=== PATIENT | female | born 1995 | race Caucasian/White ===

== ENCOUNTER 2019-11-15 10:36 | Emergency (ER) | payer OTHER ==
[~2019-11-15] VITALS: Ht 165.1 cm; Wt 79.4 kg
[2019-11-15] MEDS ORDERED: ONDANSETRON HCL INJ 2MG/ML 2ML 2 MG/ML VIAL IV STA (10:48)
[2019-11-15] MEDS ORDERED: PANTOPRAZOLE 40 MG 10ML VIAL IV STA (10:48)
[2019-11-15] MEDS ORDERED: SODIUM CHLORIDE 0.9% 1000ML 1,000 ML IV STA ×2 (10:48→12:51)
--- NOTE | 2019-11-15 10:56 | NUR ---
MD JACOME DONE, PT REFUSED TO ALLOW MD TO CONTINUE WITH EVAL. PT KEPT GRABBING MD ARM NUMEROUS TIMES. PT KEEPS PULLING OFF MASK. PT CONTINUES TO THRASH ABOUT SCREAMING AND YELLING UNCONTROLLABLY. PT GROWLS AND CONTINUES MAKING NOISES WHILE THRASHING. PT DID HOWEVER, STOP DURING TALKING ON HER CELL PHONE AND REMAINED CALM UNTIL STAFF BACK IN ROOM. PT ABLE TO SIT UP DISPLAYING NORMAL BEHAVIOR WHILE ON CELL PHONE CALL.
[2019-11-15 10:59] LABS: BASOPHILS # (AUTO) 0.1 (0.0-0.1); BASOPHILS % 0.5 % (0.0-1.0); EOSINOPHILS # (AUTO) 0.1 (0.0-0.4); EOSINOPHILS % 0.6 % (0.0-6.0); HEMATOCRIT 43.3 % (34.2-44.1); HEMOGLOBIN 14.1 g/dL (12.0-16.0); LYMPHOCYTES % 13.9 % (18.0-39.1); MEAN CORPUSCULAR HEMOGLOBIN 26.6 pg (28-32); MEAN CORPUSCULAR HGB CONC 32.6 g/dL (31-35); MEAN CORPUSCULAR VOLUME 81.5 fL (81-99); MONOCYTES # (AUTO) 0.8 (0.2-0.8); MONOCYTES % 5.5 % (4.4-11.3); NEUTROPHILS # (AUTO) 11.1 (2.1-6.9); NEUTROPHILS % 78.4 % (38.7-80.0); PLATELET COUNT 284 x10e3/uL (140-360); RED BLOOD COUNT 5.31 x10e6/uL (3.6-5.1); RED CELL DISTRIBUTION WIDTH 12.7 % (11.7-14.4)
[2019-11-15] MEDS ORDERED: PROMETHAZINE HCL (IM) 25 MG/ML VIAL IM ONE (11:00)
[2019-11-15] MEDS ORDERED: DICYCLOMINE HCL 20 MG/2 ML VIAL IM ONE (11:00)
--- OUTSIDE RECORDS SUMMARY | 2019-11-15 11:00 | XMS REPORT | Summary of Care ---
Author Author [facility] Address Unknown Phone Unavailable Encounter HQ Negritontr_alikarla(FIN) [id number] Date(s): 01/13/19 - 01/13/19 [facility] [id number] [facility] [address] [place] [address]- [phone] Attending Physician: Ceci Prieto MD Vital Signs No data available for this section Problem List Condition Effective Dates Status Health Status Informan t Anxiety and Active depression(Confirmed ) Anxiety and Resolved depression(Confirmed ) Family history of Active thyroid disease(Confirmed) Allergies, Adverse Reactions, Alerts Substance Reaction Severity Status penicillin Active Medications No data available for this section Results No data available for this section Immunizations Given and Recorded Vaccine Date Status Refusal Reason measles/mumps/rubella virus vaccine 01/14/19 Gi camryn measles/mumps/rubella virus vaccine 11/19/18 Gi camryn hepatitis B adult vaccine 12/24/18 Given hepatitis B adult vaccine 11/19/18 Given influenza virus vaccine, inactivated 11/17/18 R ecorded diphtheria/pertussis, acel/tetanus adult 11/01/18 Given Procedures Procedure Date Related Diagnosis Body Site Status Tonsillectomy and adenoidectomy Completed Social History Social History Type Response Smoking Status Current every day smoker; T ype: Cigarettes; Exposure to Tobacco Smoke None; Cigarette Smoking Last 365 Days Yes; Re g Smoking Cessation Counseling No entered on: 01/08/19 Assessment and Plan No data available for this section
--- OUTSIDE RECORDS SUMMARY | 2019-11-15 11:00 | XMS REPORT | Summary of Care ---
Author Author [facility] Address Unknown Phone Unavailable Encounter HQ Davir_lulu(FIN) [id number] Date(s): 11/04/18 - 11/05/18 [facility] [address] [place] [address]- [phone] Vital Signs No data available for this section Problem List Condition Effective Dates Status Health Status Informan t Anxiety and Resolved depression(Confirmed ) Anxiety and Active depression(Confirmed ) Family history of Active thyroid disease(Confirmed) Allergies, Adverse Reactions, Alerts Substance Reaction Severity Status penicillin Active Medications No data available for this section Results No data available for this section Immunizations Given and Recorded Vaccine Date Status Refusal Reason diphtheria/pertussis, acel/tetanus adult 11/01/18 Given Procedures Procedure Date Related Diagnosis Body Site Status Tonsillectomy and adenoidectomy Completed Social History Social History Type Response Smoking Status Current every day smoker; T ype: Cigarettes; Exposure to Tobacco Smoke None; Cigarette Smoking Last 365 Days Yes; Re g Smoking Cessation Counseling No entered on: 11/01/18 Assessment and Plan No data available for this section
--- OUTSIDE RECORDS SUMMARY | 2019-11-15 11:00 | XMS REPORT | Summary of Care ---
Author Author [facility] Address Unknown Phone Unavailable Encounter HQ Davir_lulu(FIN) [id number] Date(s): 12/24/18 - 12/24/18 [facility] [id number] [facility] [address] [place] [address]- [phone] Discharge Disposition: Home or Self Care Attending Physician: VISIT, NURSE CLP Vital Signs No data available for this [...] and Recorded Vaccine Date Status Refusal Reason hepatitis B adult vaccine 12/24/18 Given hepatitis B adult vaccine 11/19/18 Given measles/mumps/rubella virus vaccine 11/19/18 Gi camryn influenza virus vaccine, inactivated 11/17/18 R ecorded [...]
--- OUTSIDE RECORDS SUMMARY | 2019-11-15 11:00 | XMS REPORT | Continuity of Care Document ---
Author Author [facility] t Organization [facility] Address [facility] [place] [address] Phone Unavailable Care Team Providers Care Emergency Crew Supervisor Name Role Phone Jessica Mcknight Attphys Karlos Prieto Attphys VISIT, CLP NURSE Attphys Unavailable Payers Payer Name Policy Type Policy Number Effective Date Expiration Date S ource Problems Condition Name Condition Details Condition Category Status Onset Date Resolution Date Last Treatment Date Treating Clinician Comments Source Anxiety (finding) Anxi ety (finding) Active Problem 01/17/2019 [facility] Problem Active 2019-01-17 00:26:53 Kelly Sarmiento Family history: Thyroid disorder (context-dependent ca tegory) Family history: Thyroid disorder (context-dependent category) Active Problem 01/17/2019 Medical Group Problem Active 2019-01-17 00: 26:53 Kelly Sarmiento Allergies, Adverse Reactions, Alerts Allergy Name Allergy Type Status Severity Reaction(s) Onset Date Inacti ve Date Treating Clinician Comments Source Penicillins DA Active [place] 2017-02-28 00:00:00 [facility] penicillin penicillin Active Oh ifeanyi Sarmiento Social History Smoking Status Start Date Stop Date Source Social History 2019-01-08 18:47:53 Kelly novoa Medications Ordered Medication Name Filled Medication Name Start Date Stop Da te Current Medication? Ordering Clinician Indication Dosage Frequency Signature (SIG) Comments Components Source Ciprofloxacin 3 MG/ML / Dexamethasone 1 MG/ML Otic Suspensio n [Ciprodex] 2019-01-08 19:27:00 Yes 4 drp, RIGHT EAR, BID, X 7 day, # 1 btl, 0 Refill(s), Pharmacy: [email or web address][id number] [facility] Azithromycin 5 Day Dose Pack 250 mg oral tablet 2019-01-08 19:27 :00 Yes See Instructions, Take 2 tab lets by mouth the first day then 1 tablet by mouth days 2-5., X 5 day, # 6 tab, 0 Refill(s), Pharmacy: [email or web address] #[id number] [facility] Vital Signs Vital Name Observation Time Observation Value Comments Source Systolic (mm Hg) 2019-01-08 18:46:00 [facility] [place] Diastolic (mm Hg) 2019-01-08 18:46:00 Mem [facility]rial [place] Heart Rate 2019-01-08 18:46:00 [facility] Temperature Oral (F) 2019-01-08 18:46:00 99.0 F [facility] Height 2019-01-08 18:46:00 162.56 cm [facility] Weight 2019-01-08 18:46:00 [facility] BMI Calculated 2019-01-08 18:46:00 [facility] [place] BMI Calculated 2018-11-01 18:49:00 [facility] [place] Weight 2018-11-01 18:49:00 [facility] Height 2018-11-01 18:49:00 160.02 cm [facility] Heart Rate 2018-11-01 18:49:00 [facility] Systolic (mm Hg) 2018-11-01 18:49:00 [facility] [place] Diastolic (mm Hg) 2018-11-01 18:49:00 [facility] orial [place] Procedures Procedure Date / Time Performed Performing Clinician [facility] e Tonsillectomy and adenoidectomy [facility] Encounters Start Date/Time End Date/Time [facility] ID Source 2019-11-01 13:59:00 2019-11-01 13:59:00 Emergency E [facility] [id number] [facility] 2019-01-14 11:00:00 2019-01-14 23:59:59 Outpatient Monika Mcknight [facility] [id number] 2019-01-13 13:00:00 2019-01-13 13:00:00 Outpatient Ceci Fernández [facility] [id number] 2019-01-08 14:00:00 2019-01-08 23:59:59 Outpatient Kylah Ceci hudson [facility] [id number] 2018-12-26 15:30:00 2018-12-26 23:59:59 Outpatient VISIT, NURSE RICKY [facility] [id number] 2018-12-24 14:15:00 2018-12-24 23:59:59 Outpatient VISIT, NURSE RICKY [facility] [id number] 2018-11-19 09:45:00 2018-11-19 23:59:59 Outpatient Monika Mcknight [facility] [id number] 2018-11-12 16:08:26 2018-11-13 16:08:26 Outpatient [facility] [id number] 2018-11-08 08:31:06 2018-11-09 08:31:06 Outpatient [facility] [id number] 2018-11-04 20:14:36 2018-11-05 20:14:36 Outpatient [facility] [id number] 2018-11-01 13:30:00 2018-11-01 23:59:59 Outpatient Monika Mcknight [facility] [id number] Results Test Description Test Time Test Comments Results Result Comments Source URINALYSIS COMPLETE 2019-08-27 04:28:00 Test Item UA COLOR (test code = COLU) Light-Yellow YELLOW UA APPEARANCE (test code = APPU) CLEAR CLEAR UA GLUCOSE DIPSTICK (test code = DGLUU) NEGATIVE mg/dL NEGATIVE UA BILIRUBIN DIPSTICK (test code = BILU) NEGATIVE mg/dL NEGATIVE UA KETONE DIPSTICK (test code = KETU) NEGATIVE mg/dL NEGATIVE UA SPECIFIC GRAVITY (test code = SGU) 1.012 1.001-1.035 UA BLOOD DIPSTICK (test code = TERESO) Negative mg/dL NEGATIVE UA PH DIPSTICK (test code = FRANCHESKA) 6.0 5.0-8.0 UA PROTEIN DIPSTICK (test code = PROU) NEGATIVE mg/dL NEGATIVE UA UROBILINIOGEN DIPSTICK (test code = URO) Normal mg/dL NEGATIVE UA NITRITE DIPSTICK (test code = ELIANE) NEGATIVE NEGATIVE UA LEUKOCYTE ESTERASE W REFLEX (test code = LEUUR) NEGATIVE Marilin/uL NEGATIVE UA WBC (test code = WBCU) 0-5 per HPF 0-5 UA RBC (test code = RBCU) 0-2 #/HPF 0-5 UA EPITHELIAL CELLS (test code = EPIU) FEW per HPF FEW UA BACTERIA (test code = BACU) FEW #/HPF NONE A UA MUCUS (test code = MUCU) FEW #/LPF FEW Urine Source? Clean CatchDRUGS OF ABUSE SCREEN [id number] 04:28:00* Test Item Value Reference Range Interpretation Comments URN COCAINE (test code = COCAURN) NEGATIVE <300 ng/mL URN CANNABINOIDS (test code = CANNABURN) POSITIVE <50 ng/mL A This test provides only a preliminary test result. A morespecific alternate chemical method must be used in order toobtain a confirmed analytical result. Gas chromatography/mass spectrometry (GC/MS) is thepreferred confirmatory method. Other chemical confirmationmethods are available. Clinical consideration and professional judgment should be applied to any drug of abusetest result, particularly when preliminary positive resultsare used.Unconfirmed screening results must not be used fornon-medical purposes (e.g., employment testing, legaltesting). URN AMPHETAMINE (test code = AMPHETURN) NEGATIVE <1000 ng/mL URN BARBITURATE (test code = BARBITURN) NEGATIVE <200 ng/mL URN BENZODIAZEPINE (test code = BENZOURN) NEGATIVE <200 ng/mL URN OPIATES (test code = OPIATURN) NEGATIVE <300 ng/mL URN PHENCYCLIDINE (PCP) (test code = PHENCURN) NEGATIVE <25 ng/ mL URN METHADONE (test code = METHAURN) NEGATIVE <300 ng/mL Urine Source? Clean CatchBASIC METABOLIC [id number] 04:26:00* Test Item Value Reference Range Interpretation Comments SODIUM (test code = NA) 143 mmol/L 136-145 N POTASSIUM (test code = K) 4.0 mmol/L 3.5-5.1 N CHLORIDE (test code = CL) 112.0 mmol/L 98-107 H CARBON DIOXIDE (test code = CO2) 24.0 mmol/L 21-32 N ANION GAP (test code = GAP) 11.0 10-20 N GLUCOSE (test code = GLU) 103 mg/dL 74-106 N BLOOD UREA NITROGEN (test code = BUN) 13 mg/dL 7-18 N GLOMERULAR FILTRATION RATE (test code = GFR) > 60 mL/min >=60 Estimated GFR by using Modified MDRD formula.Chronic kidney disease is defined as either kidney damageor GFR <60 mL/min/1.73 m2 for >3 months. CREATININE (test code = CREAT) 0.80 mg/dL 0.55-1.02 N Note change in reference range due to change in reagent. BUN/CREATININE RATIO (test code = BUN/CREA) 16.3 10-20 N CALCIUM (test code = CA) 8.6 mg/dL 8.5-10.1 N HEPATIC FUNCTION [id number] 04:26:00* Test Item Value Reference Range Interpretation Comments TOTAL PROTEIN (test code = PROT) 7.9 gram/dL 6.4-8.2 N ALBUMIN (test code = ALB) 4.4 g/dL 3.4-5.0 N GLOBULIN (test code = GLOB) 3.5 gram/dL 2.7-4.2 N ALBUMIN/GLOBULIN RATIO (test code = A/G) 1.3 0.75-1.50 N BILIRUBIN TOTAL (test code = BILT) 0.20 mg/dL 0.0-1.0 N BILIRUBIN DIRECT (test code = BILD) 0.10 mg/dL 0.0-0.20 N SGOT/AST (test code = AST) 18 IUnit/L 15-37 N SGPT/ALT (test code = ALT) 23 IUnit/L 12-78 N ALKALINE PHOSPHATASE TOTAL (test code = ALKP) 80 IUnit/L 45-117 N Note change in reference range due to change in reagent. HCG SERUM [id number] 04:26:00* Test Item Value Reference Range Interpretation Comments HCG SERUM QUAL (test code = HCGQL) NEGATIVE NEGATIVE This HCGQL test is NOT applicable for MALE patients.Check with nurse about probable order error.If Tumor Marker Test needed, nurse should order test "HCGTU"(Test #550.72307) [id number] 04:26:00* Test Item Value Reference Range Interpretation Comments ACETAMINOPHEN (test code = ACET) < 10 mcg/mL 10-30 L A RANGE OF 10-30 mcg/mL IS A THERAPEUTIC RANGE. TOXIC CONCENTRATIONS: >150 mcg/mL AT 4 HOURS AFTER INGESTION >= 50 mcg/mL AT 12 HOURS AFTER INGESTION [id number] 04:26:00* Test Item Value Reference Range Interpretation Comments SALICYLATE (test code = CARLOS) 2.2 mg/dL 2.8-20.0 L [id number] 04:26:00* Test Item Value Reference Range Interpretation Comments ALCOHOL (test code = ALC) 203 mg/dL 0.0-3.0 H -- INTERPRETIVE DATA NOTE: POSITIVE SCREENING RESULTS SHOULD BE CONSIDERED PRESUMPTIVE.WHEN COLLECTED FOR MEDICAL PURPOSES ONLY. SPECIMEN WILL NOTBE COLLECTED BY CHAIN OF CUSTODY.IF A CONFIRMATION OF POSITIVE RESULTS IS DESIRED, ACONFIRMATION TEST MUST BE REQUESTED BY THE PHYSICIAN AT ANADDITIONAL CHARGE TO THE PATIENT. BASIC METABOLIC [id number] 04:20:00* Test Item Value Reference Range Interpretation Comments SODIUM (test code = NA) 143 mmol/L 136-145 N POTASSIUM (test code = K) 4.0 mmol/L 3.5-5.1 N CHLORIDE (test code = CL) 112.0 mmol/L 98-107 H CARBON DIOXIDE (test code = CO2) mmol/L 21-32 ANION GAP (test code = GAP) 10-20 GLUCOSE (test code = GLU) mg/dL 74-106 BLOOD UREA NITROGEN (test code = BUN) mg/dL 7-18 GLOMERULAR FILTRATION RATE (test code = GFR) mL/min >=60 CREATININE (test code = CREAT) mg/dL 0.55-1.02 BUN/CREATININE RATIO (test code = BUN/CREA) 10-20 CALCIUM (test code = CA) mg/dL 8.5-10.1 HEPATIC FUNCTION [id number] 04:20:00* Test Item Value Reference Range Interpretation Comments TOTAL PROTEIN (test code = PROT) gram/dL 6.4-8.2 ALBUMIN (test code = ALB) g/dL 3.4-5.0 GLOBULIN (test code = GLOB) gram/dL 2.7-4.2 ALBUMIN/GLOBULIN RATIO (test code = A/G) 0.75-1.50 BILIRUBIN TOTAL (test code = BILT) mg/dL 0.0-1.0 BILIRUBIN DIRECT (test code = BILD) mg/dL 0.0-0.20 SGOT/AST (test code = AST) IUnit/L 15-37 SGPT/ALT (test code = ALT) IUnit/L 12-78 ALKALINE PHOSPHATASE TOTAL (test code = ALKP) IUnit/L 45-117 HCG SERUM [id number] 04:20:00* Test Item Value Reference Range Interpretation Comments HCG SERUM QUAL (test code = HCGQL) NEGATIVE NEGATIVE This HCGQL test is NOT applicable for MALE patients.Check with nurse about probable order error.If Tumor Marker Test needed, nurse should order test "HCGTU"(Test #550.17820) [id number] 04:20:00* Test Item Value Reference Range Interpretation Comments ACETAMINOPHEN (test code = ACET) mcg/mL 10-30 [id number] 04:20:00* Test Item Value Reference Range Interpretation Comments SALICYLATE (test code = CARLOS) mg/dL 2.8-20.0 [id number] 04:20:00* Test Item Value Reference Range Interpretation Comments ALCOHOL (test code = ALC) mg/dL 0-3 BASIC METABOLIC [id number] 04:17:00* Test Item Value Reference Range Interpretation Comments SODIUM (test code = NA) mmol/L 136-145 POTASSIUM (test code = K) mmol/L 3.5-5.1 CHLORIDE (test code = CL) mmol/L 98-107 CARBON DIOXIDE (test code = CO2) mmol/L 21-32 ANION GAP (test code = GAP) 10-20 GLUCOSE (test code = GLU) mg/dL 74-106 BLOOD UREA NITROGEN (test code = BUN) mg/dL 7-18 GLOMERULAR FILTRATION RATE (test code = GFR) mL/min >=60 CREATININE (test code = CREAT) mg/dL 0.55-1.02 BUN/CREATININE RATIO (test code = BUN/CREA) 10-20 CALCIUM (test code = CA) mg/dL 8.5-10.1 HEPATIC FUNCTION [id number] 04:17:00* Test Item Value Reference Range Interpretation Comments TOTAL PROTEIN (test code = PROT) gram/dL 6.4-8.2 ALBUMIN (test code = ALB) g/dL 3.4-5.0 GLOBULIN (test code = GLOB) gram/dL 2.7-4.2 ALBUMIN/GLOBULIN RATIO (test code = A/G) 0.75-1.50 BILIRUBIN TOTAL (test code = BILT) mg/dL 0.0-1.0 BILIRUBIN DIRECT (test code = BILD) mg/dL 0.0-0.20 SGOT/AST (test code = AST) IUnit/L 15-37 SGPT/ALT (test code = ALT) IUnit/L 12-78 ALKALINE PHOSPHATASE TOTAL (test code = ALKP) IUnit/L 45-117 HCG SERUM [id number] 04:17:00* Test Item Value Reference Range Interpretation Comments HCG SERUM QUAL (test code = HCGQL) NEGATIVE NEGATIVE This HCGQL test is NOT applicable for MALE patients.Check with nurse about probable order error.If Tumor Marker Test needed, nurse should order test "HCGTU"(Test #550.64709) [id number] 04:17:00* Test Item Value Reference Range Interpretation Comments ACETAMINOPHEN (test code = ACET) mcg/mL 10-30 [id number] 04:17:00* Test Item Value Reference Range Interpretation Comments SALICYLATE (test code = CARLOS) mg/dL 2.8-20.0 [id number] 04:17:00* Test Item Value Reference Range Interpretation Comments ALCOHOL (test code = ALC) mg/dL 0-3 CBC W/O [id number] 03:59:00* Test Item Value Reference Range Interpretation Comments WHITE BLOOD CELL (test code = WBC) 11.7 K/mm3 4.5-12.5 N RED BLOOD CELL (test code = RBC) 5.17 mill/mm3 3.7-5.2 N HEMOGLOBIN (test code = HGB) 14.2 gram/dL 11.5-15.5 N HEMATOCRIT (test code = HCT) 43.7 % 36.0-46.0 N MEAN CELL VOLUME (test code = MCV) 84.5 fL 80-98 N MEAN CELL HGB (test code = MCH) 27.5 picogram 27.0-33.0 N MEAN CELL HGB CONCETRATION (test code = MCHC) 32.5 gram/dL 33.0-36. 0 L RED CELL DISTRIBUTION WIDTH (test code = RDW) 13.0 % 11.6-16. 2 N PLATELET COUNT (test code = PLT) 258 K/mm3 150-450 N MEAN PLATELET VOLUME (test code = MPV) 8.7 fL 6.7-11.0 N URINALYSIS [id number] 03:58:00* Test Item Value Reference Range Interpretation Comments UA COLOR (test code = COLU) Light-Yellow YELLOW UA APPEARANCE (test code = APPU) CLEAR CLEAR UA GLUCOSE DIPSTICK (test code = DGLUU) NEGATIVE mg/dL NEGATIVE UA BILIRUBIN DIPSTICK (test code = BILU) NEGATIVE mg/dL NEGATIVE UA KETONE DIPSTICK (test code = KETU) NEGATIVE mg/dL NEGATIVE UA SPECIFIC GRAVITY (test code = SGU) 1.012 1.001-1.035 UA BLOOD DIPSTICK (test code = TERESO) Negative mg/dL NEGATIVE UA PH DIPSTICK (test code = FRANCHESKA) 6.0 5.0-8.0 UA PROTEIN DIPSTICK (test code = PROU) NEGATIVE mg/dL NEGATIVE UA UROBILINIOGEN DIPSTICK (test code = URO) Normal mg/dL NEGATIVE UA NITRITE DIPSTICK (test code = ELIANE) NEGATIVE NEGATIVE UA LEUKOCYTE ESTERASE W REFLEX (test code = LEUUR) NEGATIVE Marilin/uL NEGATIVE UA WBC (test code = WBCU) 0-5 per HPF 0-5 UA RBC (test code = RBCU) 0-2 #/HPF 0-5 UA EPITHELIAL CELLS (test code = EPIU) FEW per HPF FEW UA BACTERIA (test code = BACU) FEW #/HPF NONE A UA MUCUS (test code = MUCU) FEW #/LPF FEW Urine Source? Clean CatchDRUGS OF ABUSE SCREEN [id number] 03:58:00* Test Item Value Reference Range Interpretation Comments URN COCAINE (test code = COCAURN) <300 ng/mL URN CANNABINOIDS (test code = CANNABURN) <50 ng/mL URN AMPHETAMINE (test code = AMPHETURN) <1000 ng/mL URN BARBITURATE (test code = BARBITURN) <200 ng/mL URN BENZODIAZEPINE (test code = BENZOURN) <200 ng/mL URN OPIATES (test code = OPIATURN) <300 ng/mL URN PHENCYCLIDINE (PCP) (test code = PHENCURN) <25 ng/ mL URN METHADONE (test code = METHAURN) <300 ng/mL Urine Source? Clean CatchCBC W/O [id number] 03:58:00* Test Item Value Reference Range Interpretation Comments WHITE BLOOD CELL (test code = WBC) K/mm3 4.5-12.5 RED BLOOD CELL (test code = RBC) mill/mm3 3.7-5.2 HEMOGLOBIN (test code = HGB) 14.2 gram/dL 11.5-15.5 N HEMATOCRIT (test code = HCT) 43.7 % 36.0-46.0 N MEAN CELL VOLUME (test code = MCV) fL 80-98 MEAN CELL HGB (test code = MCH) picogram 27.0-33.0 MEAN CELL HGB CONCETRATION (test code = MCHC) gram/dL 33.0-36. 0 RED CELL DISTRIBUTION WIDTH (test code = RDW) % 11.6-16. 2 PLATELET COUNT (test code = PLT) K/mm3 150-450 MEAN PLATELET VOLUME (test code = MPV) fL 6.7-11.0 URINALYSIS [id number] 03:57:00* Test Item Value Reference Range Interpretation Comments UA COLOR (test code = COLU) Light-Yellow YELLOW UA APPEARANCE (test code = APPU) CLEAR CLEAR UA GLUCOSE DIPSTICK (test code = DGLUU) NEGATIVE mg/dL NEGATIVE UA BILIRUBIN DIPSTICK (test code = BILU) NEGATIVE mg/dL NEGATIVE UA KETONE DIPSTICK (test code = KETU) NEGATIVE mg/dL NEGATIVE UA SPECIFIC GRAVITY (test code = SGU) 1.012 1.001-1.035 UA BLOOD DIPSTICK (test code = TERESO) Negative mg/dL NEGATIVE UA PH DIPSTICK (test code = FRANCHESKA) 6.0 5.0-8.0 UA PROTEIN DIPSTICK (test code = PROU) NEGATIVE mg/dL NEGATIVE UA UROBILINIOGEN DIPSTICK (test code = URO) Normal mg/dL NEGATIVE UA NITRITE DIPSTICK (test code = ELIANE) NEGATIVE NEGATIVE UA LEUKOCYTE ESTERASE W REFLEX (test code = LEUUR) NEGATIVE Marilin/uL NEGATIVE UA WBC (test code = WBCU) per HPF 0-5 UA RBC (test code = RBCU) per HPF 0-5 UA EPITHELIAL CELLS (test code = EPIU) per HPF Few UA BACTERIA (test code = BACU) per HPF NONE Urine Source? Clean CatchDRUGS OF ABUSE SCREEN [id number] 03:57:00* Test Item Value Reference Range Interpretation Comments URN COCAINE (test code = COCAURN) <300 ng/mL URN CANNABINOIDS (test code = CANNABURN) <50 ng/mL URN AMPHETAMINE (test code = AMPHETURN) <1000 ng/mL URN BARBITURATE (test code = BARBITURN) <200 ng/mL URN BENZODIAZEPINE (test code = BENZOURN) <200 ng/mL URN OPIATES (test code = OPIATURN) <300 ng/mL URN PHENCYCLIDINE (PCP) (test code = PHENCURN) <25 ng/ mL URN METHADONE (test code = METHAURN) <300 ng/mL Urine Source? Clean Catch
--- OUTSIDE RECORDS SUMMARY | 2019-11-15 11:00 | XMS REPORT | Summary of Care ---
Author Author [facility] Address Unknown Phone Unavailable Encounter HQ Negritontr_lulu(FIN) [id number] Date(s): 11/08/18 - 11/09/[address] [facility] [address] [place] [address]- [phone] Vital Signs No data available for this [...]
--- OUTSIDE RECORDS SUMMARY | 2019-11-15 11:00 | XMS REPORT | Summary of Care ---
Author Author [facility] Address Unknown Phone Unavailable Encounter HQ Davir_lulu(FIN) [id number] Date(s): 11/19/18 - 11/19/18 [facility] [address] [place] [address]- [phone] Discharge Disposition: Home or Self Care Attending Physician: Stephanie Mcknight MD Vital Signs No data available for [...] Status Refusal Reason hepatitis B adult vaccine 11/19/18 Given measles/mumps/rubella virus vaccine 11/19/18 Gi camryn diphtheria/pertussis, acel/tetanus adult 11/01/18 Given Procedures Procedure [...]
--- OUTSIDE RECORDS SUMMARY | 2019-11-15 11:00 | XMS REPORT | Summary of Care ---
Author Author [facility] Address Unknown Phone Unavailable Encounter HQ Encntr_alikarla(FIN) [id number] Date(s): 01/14/19 - 01/14/19 [facility] [place] [address] [facility] [address] [place] [address]- [phone] Discharge Disposition: Home or Self Care Attending [...]
--- OUTSIDE RECORDS SUMMARY | 2019-11-15 11:00 | XMS REPORT | Summary of Care ---
Author Author [facility] Address Unknown Phone Unavailable Encounter HQ Negritontr_lulu(FIN) [id number] Date(s): 12/26/18 - 12/26/18 [facility] [address] [facility] [address] [place] [address]- [phone] Discharge Disposition: Home or Self Care Attending [...]
--- OUTSIDE RECORDS SUMMARY | 2019-11-15 11:00 | XMS REPORT | Summary of Care ---
Author Author [facility] Address Unknown Phone Unavailable Encounter ARMAND Campos(LEE) [id number] Date(s): 01/08/19 - 01/08/19 [facility] [address] [place] [address]- [phone] Discharge Disposition: Home or Self Care Attending Physician: Ceci Prieto MD Vital Signs Most recent to 1 oldest [Reference Range]: Height 162.56 cm (01/08/19 1:46 PM) Temperature Oral 99.0 DegF [96.4-99.1 DegF] (01/08/19 1:46 PM) Blood Pressure 107/72 mmHg [90-140/60-90 mmHg] (01/08/19 1:46 PM) Peripheral Pulse 79 bpm Rate [60-100 bpm] (01/08/19 1:46 PM) Weight 81.563 kg (01/08/19 1:46 PM) Body Mass Index 30.86 m2 (01/08/19 1:46 PM) Problem List Condition Effective Dates Status Health Status Informan t Anxiety and Active depression(Confirmed ) Anxiety and Resolved depression(Confirmed ) Family history of Active thyroid disease(Confirmed) Allergies, Adverse Reactions, Alerts Substance Reaction Severity Status penicillin Active Medications Azithromycin 5 Day Dose Pack 250 mg oral tablet See Instructions, Take 2 tablets by mouth the first day then 1 tablet by mouth d ays 2-5., X 5 day, # 6 tab, 0 Refill(s), Pharmacy: [facility] #[id number] Start Date: 01/08/19 Stop Date: 01/13/19 Status: Ordered Ciprodex otic suspension 4 drp, RIGHT EAR, BID, X 7 day, # 1 btl, 0 Refill(s), Pharmacy: [facility] #[id number] Start Date: 01/08/19 Stop Date: 01/15/19 Status: Ordered Results No data available for this section [...]
--- OUTSIDE RECORDS SUMMARY | 2019-11-15 11:00 | XMS REPORT | Summary of Care ---
Author Author [facility] Address Unknown Phone Unavailable Encounter HQ Negritontr_lulu(FIN) [id number] Date(s): 11/12/18 - 11/13/18 [facility] [address] [facility] [address] [place] [address]- [phone] Vital Signs No data available for this [...]
--- OUTSIDE RECORDS SUMMARY | 2019-11-15 11:00 | XMS REPORT | Continuity of Care Document ---
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 Name Role Phone [employer] Unavailable Un available Problems Problem Status Onset Date Classification Date Reported Comments Source Anxiety (finding) Active Problem 01/17/2019 [facility] Family history: Thyroid disorder (contex t-dependent category) Active Prob marcelle 01/17/2019 [facility] Medications Medication Details Route Status Patient Instructions Ordering Provider Order Date Source Ciprofloxacin 3 MG/ML / Dexamethasone 1 MG/ML Otic Suspension [Ciprodex] 4 drp, RIGHT EAR, BID, X 7 day, # 1 btl, 0 Refill(s), Pharmacy: [facility] #[id number] Active 01/08/2019 [facility] Azithromycin 5 Day Dose Pack 250 mg oral tablet See Instructions, Take 2 tablets by mouth the first day then 1 tablet by mouth days 2-5., X 5 day, # 6 tab, 0 Refill(s), Pharmacy: [facility] #[id number] Active 01/08/2019 [facility] Allergies, Adverse Reactions, Alerts Substance Category Reaction Severity Reaction type Status Date Reported Comments Source penicillin Assertion Drug allergy Active [facility] Immunizations Immunization Date Given Site Status Last Updated Comments Source measles/mumps/rubella virus vaccine 01/14/2019 Left upper arm completed [facility] hepatitis B adult vaccine 12/15 Left Deltoid completed [facility] hepatitis B adult vaccine 09/2018 Right Deltoid completed [facility] measles/mumps/rubella virus vaccine 11/19/2018 Left Arm completed [facility] influenza virus vaccine, inactivated 11/17/2018 completed [facility] diphtheria/pertussis, acel/tetanus adult 11/01/2018 Right Deltoid completed [facility] Results No Data Provided for This Section Pathology Reports No Data Provided for This Section Diagnostic Reports No Data Provided for This Section Consultation Notes No Data Provided for This Section Discharge Summaries No Data Provided for This Section History and Physicals No Data Provided for This Section Vital Signs Vital Sign Value Date Comments Source Systolic (mm Hg) 107 01/08/2019 [facility] Diastolic (mm Hg) 72 01/08/2019 [facility] Heart Rate 79 01/08/2019 [facility] Temperature Oral (F) 99.0 F 01/08/2019 [facility] Height 162.56 cm 01/08/2019 [facility] Weight 81.563 01/08/2019 [facility] BMI Calculated 30.86 01/08/2019 [facility] BMI Calculated 29.9 11/01/2018 [facility] Weight 76.563 11/01/2018 [facility] Height 160.02 cm 11/01/2018 [facility] Heart Rate 91 11/01/2018 [facility] Systolic (mm Hg) 126 11/01/2018 [facility] Diastolic (mm Hg) 89 11/01/2018 [facility] Encounters Location Location Details Encounter Type Encounter Number Reason For Visit Attending Provider ADM Date DC Date Status Source Outpatient [id number] Stephanie Mcknight 11/01/2018 [facility] [id number] Stephanie Mcknight 11/01/2018 11/02/2018 [facility] Between Visit [id number] 11/05/2018 11/06/2018 [facility] Between Visit [id number] 11/08/2018 11/09/2018 [facility] [place] Between Visit [id number] 11/12/2018 11/13/2018 [facility] Outpatient [id number] NURSE VISIT 11/19/2018 Active [facility] [id number] Stephanie Mcknight 11/19/2018 11/20/2018 [facility] Outpatient [id number] NURSE VISIT 12/24/2018 Active [facility] [place] Out[facility] [id number] NURSE VISIT 12/24/2018 12/25/2018 [facility] Outpatient [id number] NURSE VISIT 12/26/2018 Active [facility] [place] Outpatient [id number] NURSE VISIT 12/26/2018 12/27/2018 [facility] Outpatient [id number] Ceci Prieto 01/08/2019 Active [facility] [place] Out[facility] [id number] Ceci Ida 01/08/2019 01/09/2019 Medical [facility] Outpatient [id number] Ceci Prieto 01/13/2019 Active [facility] [id number] Ceci Ida 01/13/2019 01/13/2019 [facility] Outpatient [id number] NURSE VISIT 01/14/2019 [facility] Out[facility] [id number] Stephanie Mcknight 01/14/2019 01/15/2019 Medical [facility] Outpatient [id number] EstivenMaudeHerminia Le 11/01/2019 Active [facility] Procedures Procedure Code Date Perfomer Comments Source Tonsillectomy and adenoidectomy [id number] [facility] Assessment and Plan No Data Provided for This Section Plan of Care No Data Provided for This Section Social History Social History Date Source Social History TypeResponse Smoking Status Current every day smoker; Type: Cigarettes; Exposure to Tobacco Smoke None; Cigarette Smoking Last 365 Days Yes; Reg Smoking Cessation Counseling No entered on: 01/08/19 01/08/2019 [facility] Family History No Data Provided for This Section Advance Directives No Data Provided for This Section Functional Status No Data Provided for This Section
--- OUTSIDE RECORDS SUMMARY | 2019-11-15 11:00 | XMS REPORT | Summary of Care ---
Author Author [facility] Address Unknown Phone Unavailable Encounter HQ Beth(FIN) [id number] Date(s): 11/01/18 - 11/01/18 [facility] [place] [address] [facility] [address] [place] [address]- [phone] Discharge Disposition: Home or Self Care Attending Physician: Stephanie Mcknight MD Vital Signs Most recent to 1 oldest [Reference Range]: Height 160.02 cm (11/01/18 1:49 PM) Blood Pressure 126/89 mmHg [90-140/60-90 mmHg] (11/01/18 1:49 PM) Peripheral Pulse 91 bpm Rate [60-100 bpm] (11/01/18 1:49 PM) Weight 76.563 kg (11/01/18 1:49 PM) Body Mass Index 29.9 m2 (11/01/18 1:49 PM) Problem List Condition Effective Dates Status Health Status Informan t Anxiety and Resolved depression(Confirmed ) Anxiety and Active depression(Confirmed ) Family history of Active thyroid disease(Confirmed) Allergies, Adverse Reactions, Alerts Substance Reaction Severity Status penicillin Active Medications No Known Medications Results No data available for this section [...]
[2019-11-15 11:18] LABS: ALANINE AMINOTRANSFERASE 14 IU/L (0-55); ALBUMIN 4.7 g/dL (3.5-5.0); ALBUMIN/GLOBULIN RATIO 1.6 (0.8-2.0); ALKALINE PHOSPHATASE 64 IU/L (40-150); AMYLASE 55 U/L (25-125); ANION GAP 18.3 mmol/L (8-16); BLOOD UREA NITROGEN 9 mg/dL (7-26); BUN/CREATININE RATIO 9 (6-25); CALCIUM 9.7 mg/dL (8.4-10.2); CARBON DIOXIDE 17 mmol/L (22-29); CHLORIDE 107 mmol/L (98-107); CREATINE KINASE 39 IU/L (29-168); CREATININE, SERUM 0.95 mg/dL (0.57-1.11); EST GLOMERULAR FILTRATION RATE > 60 ML/MIN (60-); GLUCOSE 189 mg/dL (74-118); LIPASE 19 U/L (8-78); MAGNESIUM 1.5 MG/DL (1.3-2.1); POTASSIUM 3.3 mmol/L (3.5-5.1); SODIUM 139 mmol/L (136-145)
[2019-11-15 11:29] LABS: INR 0.99; PROTHROMBIN TIME 13.6 seconds (11.9-14.5)
[2019-11-15 11:30] LABS: PARTIAL THROMBOPLASTIN TIME 25.2 seconds (23.8-35.5)
[2019-11-15 12:40] LABS: CLARITY,URINE CLOUDY (CLEAR); COLOR,URINE YELLOW (YELLOW)
[2019-11-15 12:41] LABS: LEUKOCYTE ESTERASE ,URINE SMALL (NEGATIVE); NITRITE,URINE NEGATIVE (NEGATIVE); PROTEIN,URINE DIPSTICK NEGATIVE (NEGATIVE)
[2019-11-15 12:42] LABS: BACTERIA,URINE RARE /HPF; BILIRUBIN,URINE NEGATIVE (NEGATIVE); EPITHELIAL CELLS,URINE FEW /LPF; KETONES,URINE >=160 (NEGATIVE); URINE UROBILINOGEN 0.2 mg/dL (0.2 - 1)
[2019-11-15 12:44] LABS: PREGNANCY TEST, URINE NEGATIVE (NEGATIVE)
[2019-11-15 12:45] LABS: AMPHETAMINES SCREEN,URINE NEGATIVE (NEGATIVE); BENZODIAZEPINES SCREEN,URINE NEGATIVE (NEGATIVE); PHENCYCLIDINE SCREEN,URINE NEGATIVE (NEGATIVE)
[2019-11-15] MEDS ORDERED: CEFTRIAXONE SOD 1 GM/NS 50 ML 50 ML IV ONE (13:00)
[2019-11-15] MEDS ORDERED: SODIUM CHLORIDE 0.9% 1000ML 1,000 ML ONE (13:02)
[2019-11-15] MEDS ORDERED: DIPHENHYDRAMINE HCL INJ 50 MG/ML VIAL ONE (13:07)
[2019-11-15] MEDS ORDERED: LORAZEPAM INJ 2 MG/ML VIAL ONE (13:07)
--- NOTE | 2019-11-15 13:10 | Diagnostic Imaging Report ---
EXAM: CT Abdomen and Pelvis WITH contrast INDICATION: Upper abdominal pain. COMPARISON: None. TECHNIQUE: Abdomen and pelvis were scanned utilizing a multidetector helical scanner from the lung base to the pubic symphysis after administration of IV contrast. Coronal and sagittal reformations were obtained. Routine protocol was performed. Scan was performed when during portal venous phase. IV CONTRAST: 100 mL of Isovue 370 ORAL CONTRAST: None COMPLICATIONS: None RADIATION DOSE: Total DLP: 492.03 mGy*cm Estimated effective dose: (DLP x 0.015 x size factor) mSv CTDIvol has been reviewed. It is below the limits set by the Radiation Protocol Committee (RPC). Dose modulation, iterative reconstruction, and/or weight based adjustment of the mA/kV was utilized to reduce the radiation dose to as low as reasonably achievable. FINDINGS: LINES and TUBES: None. LOWER THORAX: Unremarkable HEPATOBILIARY: No focal hepatic lesions. No biliary ductal dilation. GALLBLADDER: No radio-opaque stones or sludge. No wall thickening. SPLEEN: No splenomegaly. PANCREAS: No focal masses or ductal dilatation. ADRENALS: No adrenal nodules KIDNEYS/URETERS: Kidneys enhance symmetrically. No hydronephrosis. No cystic or solid mass lesions. No stones. GI TRACT: No abnormal distention, wall thickening, or evidence of bowel obstruction. Appendix is normal. PELVIC ORGANS/BLADDER: (Luteum on the right. Otherwise normal pelvic structures. LYMPH NODES: No lymphadenopathy. VESSELS: Unremarkable. PERITONEUM / RETROPERITONEUM: No free air or fluid. BONES: Unremarkable. SOFT TISSUES: Unremarkable. IMPRESSION: No acute abdominal findings identified. Signed by: Rosie Rodriguez MD on 11/15/2019 1:06 PM
--- NOTE | 2019-11-15 13:10 | NUR ---
Patient provided with multiple emesis bags but continues to vomit on the floor despite being asked not to. The patient complains of abdominal pain but then screams and lashes out verbally at staff and demands more "pain medication". Patient also continuously pulls her monitor leads off and is actively thrashing in the bed saying that she is uncomfortable and doesn't care about vital signs because she is in pain.
[2019-11-15] MEDS ORDERED: LORAZEPAM INJ 2 MG/ML VIAL IV ONE (13:15)
[2019-11-15] MEDS ORDERED: DIPHENHYDRAMINE HCL INJ 50 MG/ML VIAL IV ONE (13:15)
[2019-11-15 13:28] LABS: ABG HCO3 17 mmol/L (22-26); ABG PCO2 27 mmHg (35-45); ABG PO2 100 mmHg (80-105); ABG TCO2 18
--- NOTE | 2019-11-15 14:06 | Emergency Department Note ---
History of Present Illnes History of Present Illness Chief Complaint: Abdominal Complaints History of Present Illness This is a 23 year old female PT C/O ABDOMINAL PAIN SINCE 0800 TODAY WITH N/V. SCREAMING UNCONTROLLABLY GRUNTING AND GROWLING STATING PAIN IN ABD. PT STATES NAUSEA. EMS GAVE ZOFRAN IV PRIVATE EQUITY ANALYST. PT CAUSING HERSELF TO HYPERVENTILATE. PT AAOX4. PT SCREAMING AND THRASHING STATING SHE CANT ANSWER MEDICAL QUESTION D/T PAIN. PT KEEPS PULLING OFF SURGICAL MASK. DENIES COVID TESTING. LMP 3 WKS. PT STATES PSYCH HX DEPRESSION, MOOD STABILIZERS. . 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 EMS Treatment PRIVATE EQUITY ANALYST: IV, See EMS Report Additional Treatment PRIVATE EQUITY ANALYST: ZOFRAN 4MG IVP PRIVATE EQUITY ANALYST Cardiovascular Sonographer Required: No Onset (how long ago): hour(s) Location: UPPER ABDOMEN Quality: PAIN Radiation: Reports non-radiation Severity: severe Onset quality: sudden Timing of current episode: constant Progression: waxing and waning Chronicity: new Context: Denies recent illness Relieving factors: none Exacerbating factors: none Associated symptoms: Reports denies other symptoms Treatments prior to arrival: none Past Medical/Family History Physician Review I have reviewed the patient's past medical and family history. Any updates have been documented here. Past Medical History Recent Fever: No Clinical Suspicion of Infectio: No New/Unexplained Change in Ment: No Past Medical History: Anxiety, Depression, Other Mental Illness Other Medical History: BIPOLAR MOOD DISORDERS Past Surgical History: T&A Other Surgery: T&A TUBES IN BOTH EARS R THUMB SURGERY I&D TO RIGHT THUMB SURGICAL SITE DUE TO STAPH INFECTION Social History Smoking Cessation: Current some day smoker Counseling Performed: No Alcohol Use: Social Any Illegal Drug Use: Yes ([facility]) TB Exposure/Symptoms: No Physically hurt or threatened: No Family History Family history of heart diseas: No Review of Systems Review of Systems Constitutional: Reports no symptoms EENTM: Reports no symptoms Cardiovascular: Reports no symptoms Respiratory: Reports no symptoms Gastrointestinal: Reports as per HPI, Reports diarrhea, Reports nausea, Reports vomiting Genitourinary: Reports no symptoms Musculoskeletal: Reports no symptoms Integumentary: Reports no symptoms Neurological: Reports no symptoms Psychological: Reports no symptoms Endocrine: Reports no symptoms Hematological/Lymphatic: Reports no symptoms Physical Exam Related Data Allergies: Coded Allergies: Penicillins (Verified Allergy, Unknown, 11/15/19) Triage Vital Signs Vital Signs Date Time Temp Pulse Resp B/P (MAP) Pulse Ox O2 Delivery O2 Flow Rate FiO2 11/15/19 10:39 62 34 129/85 100 Room Air 11/15/19 10:49 98.9 Vital signs reviewed: Yes Physical Exam CONSTITUTIONAL Constitutional: Present well-developed, Present well-nourished HENT HENT: Present normocephalic, Present atraumatic, Present oropharynx clear/moist, Present nose normal HENT L/R: Present left ext ear normal, Present right ext ear normal EYES Eyes: Reports PERRL, Reports conjunctivae normal NECK Neck: Present ROM normal PULMONARY Pulmonary: Present effort normal, Present breath sounds normal CARDIOVASCULAR Cardiovascular: Present regular rhythm, Present heart sounds normal, Present capillary refill normal, Present normal rate GASTROINTESTINAL Abdominal: Present soft, Present bowel sounds normal, Present tender (LUQ/MENG/RUQ); Absent guarding, Absent rebound GENITOURINARY Genitourinary: Present exam deferred SKIN Skin: Present warm, Present dry MUSCULOSKELETAL Musculoskeletal: Present ROM normal NEUROLOGICAL Neurological: Present alert, Present oriented x 3, Present no gross motor or sensory deficits PSYCHOLOGICAL Psychological: Present mood/affect normal, Present judgement normal Results Laboratory Result Diagram: 11/15/19 1047 11/15/19 1047 Laboratory Laboratory Tests Test 11/15/19 13:15 11/15/19 12:05 11/15/19 10:47 Arterial Blood pH 7.40 (7.35-7.45) Arterial Blood Partial Pressure CO2 27 mmHg (35-45) Arterial Blood Partial Pressure O2 100 mmHg (80-105) Arterial Blood HCO3 17 mmol/L (22-26) Arterial Blood Total CO2 18 Arterial Blood Oxygen Saturation 98.0 % (95-98) Arterial Blood Base Excess -8.0 mmol/L (-2 - 3) FiO2 21 % Urine Color Yellow (YELLOW) Urine Clarity Cloudy (CLEAR) Urine pH 7.5 (5 - 7) Urine Specific [place] >=1.030 (1.010-1.025) Urine Protein Negative (NEGATIVE) Urine Glucose (UA) Negative (NEGATIVE) Urine Ketones >=160 (NEGATIVE) Urine Blood Trace (NEGATIVE) Urine Nitrite Negative (NEGATIVE) Urine Bilirubin Negative (NEGATIVE) Urine Urobilinogen 0.2 mg/dL (0.2 - 1) Urine Leukocyte Esterase Small (NEGATIVE) Urine RBC 6-10 /HPF (0-5) Urine WBC 6-10 /HPF (0-5) Urine Epithelial Cells Few /LPF (NONE) Urine Bacteria Rare /HPF (NONE) Urine Test Negative (NEGATIVE) Urine Opiates Screen Negative (NEGATIVE) Urine Methadone Screen Negative (NEGATIVE) Urine Barbiturates Screen Negative (NEGATIVE) Urine Phencyclidine Screen Negative (NEGATIVE) Urine Amphetamines Screen Negative (NEGATIVE) Urine Methamphetamines Screen Negative (NEGATIVE) Urine Benzodiazepines Screen Negative (NEGATIVE) Urine Cocaine Screen Negative (NEGATIVE) Urine Cannabinoids Screen Negative (NEGATIVE) White Blood Count 14.11 x10e3/uL (4.8-10.8) Red Blood Count 5.31 x10e6/uL (3.6-5.1) Hemoglobin 14.1 g/dL (12.0-16.0) Hematocrit 43.3 % (34.2-44.1) Mean Corpuscular Volume 81.5 fL (81-99) Mean Corpuscular Hemoglobin 26.6 pg (28-32) Mean Corpuscular Hemoglobin Concent 32.6 g/dL (31-35) Red Cell Distribution Width 12.7 % (11.7-14.4) Platelet Count 284 x10e3/uL (140-360) Neutrophils (%) (Auto) 78.4 % (38.7-80.0) Lymphocytes (%) (Auto) 13.9 % (18.0-39.1) Monocytes (%) (Auto) 5.5 % (4.4-11.3) Eosinophils (%) (Auto) 0.6 % (0.0-6.0) Basophils (%) (Auto) 0.5 % (0.0-1.0) Neutrophils # (Auto) 11.1 (2.1-6.9) Lymphocytes # (Auto) 2.0 (1.0-3.2) Monocytes # (Auto) 0.8 (0.2-0.8) Eosinophils # (Auto) 0.1 (0.0-0.4) Basophils # (Auto) 0.1 (0.0-0.1) Absolute Immature Granulocyte (auto 0.16 x10e3/uL (0-0.1) Prothrombin Time 13.6 seconds (11.9-14.5) Prothromb Time International Ratio 0.99 Activated Partial Thromboplast Time 25.2 seconds (23.8-35.5) Sodium Level 139 mmol/L (136-145) Potassium Level 3.3 mmol/L (3.5-5.1) Chloride Level 107 mmol/L (98-107) Carbon Dioxide Level 17 mmol/L (22-29) Anion Gap 18.3 mmol/L (8-16) Blood Urea Nitrogen 9 mg/dL (7-26) Creatinine 0.95 mg/dL (0.57-1.11) Estimat Glomerular Filtration Rate > 60 ML/MIN (60-) BUN/Creatinine Ratio 9 (6-25) Glucose Level 189 mg/dL (74-118) Calcium Level 9.7 mg/dL (8.4-10.2) Magnesium Level 1.5 MG/DL (1.3-2.1) Total Bilirubin 0.8 mg/dL (0.2-1.2) Aspartate Amino Transf (AST/SGOT) 15 IU/L (5-34) Alanine Aminotransferase (ALT/SGPT) 14 IU/L (0-55) Alkaline Phosphatase 64 IU/L (40-150) Creatine Kinase 39 IU/L (29-168) Creatine Kinase MB 0.80 ng/mL (0-5.0) Troponin I < 0.001 ng/mL (0-0.300) Total Protein 7.6 g/dL (6.5-8.1) Albumin 4.7 g/dL (3.5-5.0) Globulin 2.9 g/dL (2.3-3.5) Albumin/Globulin Ratio 1.6 (0.8-2.0) Amylase Level 55 U/L (25-125) Lipase 19 U/L (8-78) Human Chorionic Gonadotropin, Qual Negative (NEGATIVE) Lab results reviewed: Yes Imaging Imaging results reviewed: Yes Impressions EXAM: CT Abdomen and Pelvis WITH contrast INDICATION: Upper abdominal pain. COMPARISON: None. TECHNIQUE: Abdomen and pelvis were scanned utilizing a multidetector helical scanner from the lung base to the pubic symphysis after administration of IV contrast. Coronal and sagittal reformations were obtained. Routine protocol was performed. Scan was performed when during portal venous phase. IV CONTRAST: 100 mL of Isovue 370 ORAL CONTRAST: None COMPLICATIONS: None RADIATION DOSE: Total DLP: 492.03 mGy*cm Estimated effective dose: (DLP x 0.015 x size factor) mSv CTDIvol has been reviewed. It is below the limits set by the Radiation Protocol Committee (RPC). Dose modulation, iterative reconstruction, and/or weight based adjustment of the mA/kV was utilized to reduce the radiation dose to as low as reasonably achievable. FINDINGS: LINES and TUBES: None. LOWER THORAX: Unremarkable HEPATOBILIARY: No focal hepatic lesions. No biliary ductal dilation. GALLBLADDER: No radio-opaque stones or sludge. No wall thickening. SPLEEN: No splenomegaly. PANCREAS: No focal masses or ductal dilatation. ADRENALS: No adrenal nodules KIDNEYS/URETERS: Kidneys enhance symmetrically. No hydronephrosis. No cystic or solid mass lesions. No stones. GI TRACT: No abnormal distention, wall thickening, or evidence of bowel obstruction. Appendix is normal. PELVIC ORGANS/BLADDER: (Luteum on the right. Otherwise normal pelvic structures. LYMPH NODES: No lymphadenopathy. VESSELS: Unremarkable. PERITONEUM / RETROPERITONEUM: No free air or fluid. BONES: Unremarkable. SOFT TISSUES: Unremarkable. IMPRESSION: No acute abdominal findings identified. Signed by: Rosie Rodriguez MD on 11/15/2019 1:06 PM Procedures ABG Interpretation ABG Results: ABG 1 (pH 7.40, pCO2 27.4, pO2 100, HCO3 17) Interpretation: metabolic acidosis (WITH RESP ALKALOSIS) Assessment & Plan Medical Decision Making MDM ABD PAIN, N/V/ - CBC, CHEM'S, AARON/LIPASE, UA, PREG, CT ABD/PELVIS - R/O PANCREAT ITIS, CHOLECYSTITIS, CHOLEDOCHOLITHIASIS, BOWEL OBSTRUCTION, COLITIS, UTI, ELECTROLYTE ABNL, RENAL INSUFF, DEHYDRATION, DRUG ABUSE, ISCHEMIA, Reassessment Reassessment IMPROVED, CT NORMAL, DC WITH BENTYL/PHENERGAN/ZOFRAN, F/U PCP AND GI Assessment & Plan Final Impression: (1) Abdominal pain (2) Vomiting and diarrhea Depart Disposition: HOME, SELF-CARE Last Vital Signs Date Time Temp Pulse Resp B/P (MAP) Pulse Ox O2 Delivery O2 Flow Rate FiO2 11/15/19 13:10 84 18 134/69 100 Room Air 11/15/19 10:49 98.9 Medications in the ED Pantoprazole Sodium 40 mg ONCE STAT IV Last administered on 11/15/19at 11:08; Admin Dose 40 MG; Start 11/15/19 at 10:48; Stop 11/15/19 at 10:57; Status DC Sodium Chloride 1,000 ml @ 0 mls/hr Q0M STAT IV Last administered on 11/15/19at 11:09; Admin Dose 1,000 MLS/HR; Start 11/15/19 at 10:48; Stop 11/15/19 at 10:53; Status DC Dicyclomine HCl 20 mg ONCE ONCE IM Last administered on 11/15/19at 11:09; Admin Dose 20 MG; Start 11/15/19 at 11:00; Stop 11/15/19 at 11:01; Status DC Promethazine HCl 25 mg ONCE ONCE IM Last administered on 11/15/19at 11:09; Admin Dose 25 MG; Start 11/15/19 at 11:00; Stop 11/15/19 at 11:01; Status DC Ondansetron HCl 4 mg NOW STAT IV ; Start 11/15/19 at 10:48; Stop 11/15/19 at 10:56; Status DC Sodium Chloride 1,000 ml @ 0 mls/hr Q0M STAT IV Last administered on 11/15/19at 12:58; Admin Dose 1,000 MLS/HR; Start 11/15/19 at 12:51; Stop 11/15/19 at 12:55; Status DC Ceftriaxone Sodium 50 ml @ 100 mls/hr ONCE ONCE IV Last administered on 11/15/19at 13:08; Admin Dose 100 MLS/HR; Start 11/15/19 at 13:00; Stop 11/15/19 at 13:29; Status DC Sodium Chloride 1,000 ml @ ud STK-MED ONCE .ROUTE ; Start 11/15/19 at 13:02; Stop 11/15/19 at 12:56; Status DC Lorazepam 2 mg STK-MED ONCE .ROUTE ; Start 11/15/19 at 13:07; Stop 11/15/19 at 13:01; Status DC Diphenhydramine HCl 50 mg STK-MED ONCE .ROUTE ; Start 11/15/19 at 13:07; Stop 11/15/19 at 13:01; Status DC Diphenhydramine HCl 25 mg NOW ONCE IV Last administered on 11/15/19at 13:08; Admin Dose 25 MG; Start 11/15/19 at 13:15; Stop 11/15/19 at 13:16; Status DC Lorazepam 1 mg ONCE ONCE IV Last administered on 11/15/19at 13:08; Admin Dose 1 MG; Start 11/15/19 at 13:15; Stop 11/15/19 at 13:16; Status DC AIDA HUMPHREY MD Nov 15, 2019 14:06
--- NOTE | 2019-11-15 14:52 | NUR ---
PT STATED SHE "SHIT" IN THE TRASH CAN AND "PEED ON THE FLOOR." PT DISPLAYS BIZZARE BEHAVIOR DURING ER VISIT. PT AAOX4.
[2019-11-15] MEDS ORDERED: SODIUM CHLORIDE 0.9% 50ML 50 ML ONE (19:10)
[2019-11-15] MEDS ORDERED: IOPAMIDOL 370 MG/ML 200 ML INFUS..BTL INJ ONE (19:11)
== END 2019-11-15 15:17 | disposition home or self-care (01) ==
LOC: ER 10:58
DX: R10.10 Upper abdominal pain, unspecified (principal); R11.2 Nausea with vomiting, unspecified; R19.7 Diarrhea, unspecified; F31.9 Bipolar disorder, unspecified; F17.210 Nicotine dependence, cigarettes, uncomplicated
CPT/HCPCS: 36415; 36600; 74177; 80053; 80307; 81001; 81025; 82150; 82550; 82553; 82805; 83690; 83735; 84484; 84702; 85025; 85610; 85730; 99285; C9113; J0500; J0696; J1200; J2060; J2550; J7030; Q9967